=== PATIENT | female | born 1945 | race Caucasian/White ===

== ENCOUNTER → 2017-12-16 | Outpatient (CLI) | payer MEDICARE, OTHER ==
[~2017-12-16] MED LIST: ALBU90OI INH; ASPI81EC; ASPI81EC PO; ATEN25; ATEN25 PO; CEPH500 PO; CIPR500 PO; Cipro500 MG PO; FENO67 PO; FENOFIBRATE; FISH OIL; FISH OIL 1,0001 EAC1 PO; FLUSAL1005; FLUSAL2505 IH; HYDACE5 PO; IPRATROPIUM-ALBUTERO; LEVO750 PO; LEVOTHYROXINE; LEVSOD50 PO; LEVSOD75 PO; LISI20; LISI20 PO; LISINOPRIL; LOVA20; MELO7.5 PO; METO50ER PO; METOPROLOL; PRAV20 PO; PRED10 PO; PRED20 PO; PROCODE120 PO; Percocet 5-3251 EACH PO; Pyridium200 MG PO; TRIAMCINOLONE; Tessalon200 MG PO
== END ==
LOC: LAB 12:11 → LAB SHORT 12:11
DX: J34.89 Other specified disorders of nose and nasal sinuses (principal)
CPT/HCPCS: 87070; 87077; 87147; 87186; 87205

== ENCOUNTER → 2019-03-19 | Outpatient (CLI) | payer MEDICARE | END | disposition home or self-care (01) | LOC: LAB 17:27 → LAB SHORT 17:27 | DX: R30.9 Painful micturition, unspecified (principal) | CPT/HCPCS: 87086 ==

== ENCOUNTER → 2019-04-28 | Outpatient (CLI) | payer MEDICARE, OTHER | END | disposition home or self-care (01) | LOC: LAB SHORT 17:24 → LAB EV 17:24 | DX: N39.0 Urinary tract infection, site not specified (principal) | CPT/HCPCS: 87077; 87086; 87186 ==

== ENCOUNTER → 2019-05-13 | Outpatient (CLI) | payer MEDICARE, OTHER ==
[2019-05-13 18:19] LABS: Bun/Creatinine Ratio 16.9 (12.0-20.0); Calcium, Blood 9.2 mg/dL (8.5-10.1); Creatinine, Blood 1.3 mg/dL (0.40-1.00); Potassium, Blood 4.6 mmol/L (3.5-5.5); Thyroid Stimulating Hormone 0.17 uIU/mL (0.360-4.800)
== END | disposition home or self-care (01) ==
LOC: LAB SHORT 11:42 → LAB EV 11:42
PROVIDERS: Physician Assistant
DX: N39.3 Stress incontinence (female) (male) (principal); I10 Essential (primary) hypertension; E03.8 Other specified hypothyroidism
CPT/HCPCS: 36415; 80048; 84443; 87077; 87086; 87186

== ENCOUNTER → 2019-06-17 | Outpatient (CLI) | payer MEDICARE, OTHER ==
[2019-06-17 13:44] LABS: Creatinine Urine 66.9 mg/dL (27.00-270.00); Protein, Urine Quantitative 8.5 mg/dL (0.0-11.9)
== END | disposition home or self-care (01) ==
LOC: LAB 04:00 → LAB SHORT 04:00 → LAB FUT 06-14 12:35
PROVIDERS: Internal Medicine Nephrology
DX: N18.3 Chronic kidney disease, stage 3 (moderate) (principal); D63.1 Anemia in chronic kidney disease
CPT/HCPCS: 81050; 82043; 82570; 84156

== ENCOUNTER → 2019-11-03 | Outpatient (CLI) | payer MEDICARE, OTHER ==
[2019-11-03 15:20] LABS: BASOPHILS ABSOLUTE AUTO 0.05 K/mm3 (0.00-0.23); BASOPHILS PERCENT AUTO 0 % (0-2); EOSINOPHILS ABSOLUTE AUTO 0.21 K/mm3 (0.00-0.68); EOSINOPHILS PERCENT AUTO 2 % (0-6); Hematocrit 33.7 % (33.0-51.0); Hemoglobin 10.9 g/dL (11.5-16.0); IMMATURE GRAN ABSOLUTE AUTO 0.05 K/mm3 (0.00-0.10); IMMATURE GRAN PERCENT AUTO 0 % (0-1); LYMPHOCYTES ABSOLUTE AUTO 1.87 K/mm3 (0.84-5.20); LYMPHOCYTES PERCENT AUTO 15 % (21-46); MONOCYTES ABSOLUTE AUTO 1.37 K/mm3 (0.16-1.47); MONOCYTES PERCENT AUTO 11 % (4-13); Mean Corpuscular HGB 29.8 pg (26.0-34.0); Mean Corpuscular HGB Conc 32.3 g/dL (31.5-36.5); Mean Corpuscular Volume 92 fL (80-100); Mean Platelet Volume 11.7 fL (9.1-12.4); NEUTROPHILS ABSOLUTE AUTO 8.78 K/mm3 (1.96-9.15); NEUTROPHILS PERCENT AUTO 71 % (41-73); Platelet Count 231 K/mm3 (150-400); RDW Coefficient Variation 12.3 % (11.7-14.2); RDW Standard Deviation 41.2 fL (35.1-46.3); Red Blood Cell Count 3.66 M/mm3 (3.80-5.20); White Blood Cell Count 12.33 K/mm3 (4.00-11.30)
[2019-11-03 15:37] LABS: Albumin, Blood 2.9 g/dL (3.4-5.0); Albumin/Globulin Ratio 0.6 (0.8-1.8); Bilirubin, Total 0.5 mg/dL (0.1-1.0); Bun/Creatinine Ratio 21.5 (12.0-20.0); Creatinine, Blood 1.21 mg/dL (0.40-1.00); Globulin, Blood 4.9 g/dL (2.2-4.0); Potassium, Blood 4.3 mmol/L (3.5-5.5); Total Protein, Blood 7.8 g/dL (6.4-8.2)
== END | disposition home or self-care (01) ==
LOC: LAB EV 14:21 → LAB SHORT 14:21
PROVIDERS: Physician Assistant
DX: R50.9 Fever, unspecified (principal); R05 Cough; N39.0 Urinary tract infection, site not specified
CPT/HCPCS: 80053; 85025; 87077; 87081; 87086; 87186

== ENCOUNTER → 2019-11-14 | Outpatient (CLI) | payer MEDICARE, OTHER ==
[2019-11-14 13:05] LABS: BASOPHILS ABSOLUTE AUTO 0.04 K/mm3 (0.00-0.23); BASOPHILS PERCENT AUTO 0 % (0-2); EOSINOPHILS PERCENT AUTO 6 % (0-6); Hematocrit 34.9 % (33.0-51.0); Hemoglobin 11.3 g/dL (11.5-16.0); IMMATURE GRAN ABSOLUTE AUTO 0.13 K/mm3 (0.00-0.10); IMMATURE GRAN PERCENT AUTO 1 % (0-1); LYMPHOCYTES ABSOLUTE AUTO 1.71 K/mm3 (0.84-5.20); LYMPHOCYTES PERCENT AUTO 8 % (21-46); MONOCYTES ABSOLUTE AUTO 1.49 K/mm3 (0.16-1.47); MONOCYTES PERCENT AUTO 7 % (4-13); Mean Corpuscular HGB 29.7 pg (26.0-34.0); Mean Corpuscular HGB Conc 32.4 g/dL (31.5-36.5); Mean Corpuscular Volume 92 fL (80-100); Mean Platelet Volume 11.1 fL (9.1-12.4); NEUTROPHILS ABSOLUTE AUTO 16.53 K/mm3 (1.96-9.15); NEUTROPHILS PERCENT AUTO 78 % (41-73); Platelet Count 238 K/mm3 (150-400); RDW Coefficient Variation 12.6 % (11.7-14.2); RDW Standard Deviation 41.8 fL (35.1-46.3); Red Blood Cell Count 3.81 M/mm3 (3.80-5.20)
[2019-11-14 13:24] LABS: Source, Urine Clean Catch
[2019-11-14 13:32] LABS: Albumin, Blood 3.1 g/dL (3.4-5.0); Albumin/Globulin Ratio 0.7 (0.8-1.8); Bilirubin, Total 0.4 mg/dL (0.1-1.0); Bun/Creatinine Ratio 19.2 (12.0-20.0); Calcium, Blood 9.4 mg/dL (8.5-10.1); Creatinine, Blood 1.3 mg/dL (0.40-1.00); Globulin, Blood 4.3 g/dL (2.2-4.0); Potassium, Blood 4.4 mmol/L (3.5-5.5); Total Protein, Blood 7.4 g/dL (6.4-8.2)
[2019-11-14 13:49] LABS: Amorphous Light (0-Heavy); Bacteria Few /hpf; Mucus Light (0-Heavy); Red Blood Cells, Urine 0-2 /hpf (0-2); Squamous Epithelial Cells Many /hpf (Few)
[2019-11-14 13:50] LABS: Hyaline Casts TNTC /lpf (0-2)
== END | disposition home or self-care (01) ==
LOC: LAB SHORT 12:55 → LAB EV 12:55
PROVIDERS: General Practice
DX: R10.9 Unspecified abdominal pain (principal)
CPT/HCPCS: 80053; 81015; 85025

== ENCOUNTER 2019-11-16 15:57 | Inpatient (IN) | payer MEDICARE, OTHER ==
[~2019-11-16] VITALS: Ht 152.4 cm; Wt 63.0 kg
[~2019-11-16 15:57] MED LIST changes: -FLUSAL2505 IH; -LEVSOD75 PO; +LOVA40 PO; -PRAV20 PO
[2019-11-16] MEDS ORDERED: AMLODIPINE BESYL5 MG PO (16:45)
[2019-11-16 17:18] LABS: BASOPHILS ABSOLUTE AUTO 0.04 K/mm3 (0.00-0.23); BASOPHILS PERCENT AUTO 0 % (0-2); EOSINOPHILS ABSOLUTE AUTO 0.53 K/mm3 (0.00-0.68); EOSINOPHILS PERCENT AUTO 3 % (0-6); Hematocrit 39.2 % (33.0-51.0); Hemoglobin 12.6 g/dL (11.5-16.0); IMMATURE GRAN ABSOLUTE AUTO 0.09 K/mm3 (0.00-0.10); IMMATURE GRAN PERCENT AUTO 1 % (0-1); LYMPHOCYTES PERCENT AUTO 13 % (21-46); MONOCYTES ABSOLUTE AUTO 1.57 K/mm3 (0.16-1.47); MONOCYTES PERCENT AUTO 9 % (4-13); Mean Corpuscular HGB Conc 32.1 g/dL (31.5-36.5); Mean Corpuscular Volume 93 fL (80-100); NEUTROPHILS ABSOLUTE AUTO 12.67 K/mm3 (1.96-9.15); NEUTROPHILS PERCENT AUTO 74 % (41-73); Platelet Count 292 K/mm3 (150-400); RDW Coefficient Variation 12.5 % (11.7-14.2); RDW Standard Deviation 42.8 fL (35.1-46.3)
[2019-11-16 17:41] LABS: Albumin, Blood 3.3 g/dL (3.4-5.0); Albumin/Globulin Ratio 0.7 (0.8-1.8); Bilirubin, Total 0.3 mg/dL (0.1-1.0); Bun/Creatinine Ratio 15.2 (12.0-20.0); Calcium, Blood 9.7 mg/dL (8.5-10.1); Creatinine, Blood 2.7 mg/dL (0.40-1.00); Globulin, Blood 4.9 g/dL (2.2-4.0); Potassium, Blood 3.5 mmol/L (3.5-5.5); Total Protein, Blood 8.2 g/dL (6.4-8.2)
[2019-11-16] MEDS ORDERED: LOSA50 PO (19:41)
[2019-11-16] MEDS ORDERED: TRAM50 PO (19:42)
[2019-11-16] MEDS ORDERED: BREO ELLIPTA 11 EACH INH (19:43)
[2019-11-16] MEDS ORDERED: OMEP20ER PO (19:51)
[2019-11-16] MEDS ORDERED: MOTION RELIEF25 MG PO (19:52)
[2019-11-16 20:36] LABS: Bilirubin, Urine Neg (Neg); Blood, Urine 2+ (Neg); Glucose Qualitative, Urine Neg (Neg); Ketones, Urine 1+ (Neg); Leukocyte Esterase, Urine 1+ (Neg); Nitrite, Urine Neg (Neg); Protein, Urine 2+ (Neg); Urobilinogen, Urine NORM (Normal)
[2019-11-16 20:57] LABS: Appearance, Urine Hazy (Clear); Color, Urine Yellow (P-Yellow)
[2019-11-16 21:01] LABS: Bacteria Mod /hpf; Mucus Light (0-Heavy); Squamous Epithelial Cells Many /hpf (Few)
--- NOTE | 2019-11-16 22:56 | NUR ---
74 YR OLD FEMALE ADMITTED TO THE FLOOR FROM THE ED WITH DX OF DIVERTICULITIS. ALERT AND ORIENTED X 4. UP AD YOJANA. ED NURSE VOICED PT HAVING HAD N/V/D X 3 DAYS PRIOR TO COMING IN TO THE ED. WHEN PT ARRIVED SHE SAID SHE COULDNT KEEP ANYTHING DOWN. BECAME NAUSEATED, RECEIVED ZOFRAN IV - SEE MAR FOR DETAILS. IVF OF NS AT 100 ML/HR. NPO. ORIENTED TO USE OF CALL LIGHT. CALL LIGHT IN REACH. WILL MONITOR
--- NOTE | 2019-11-17 04:03 | NUR ---
ADMITTED LAST EVENING WITH DIVERTICULITIS. IVF INFUSING PER MD ORDERS - SEE MAR FOR DETAILS. UP TO RESTROOM A FEW TIMES BUT NO BM OF THIS WRITING. HAS VOIDED A FEW TIMES. VOICED WAS SCARED OF ALL THE THINGS HER SYMPTOMS COULD BE AND EVEN MENTIONED "CANCER", WAS TEARY EYED. PT FEARS ACKNOWLEDGED, REASSURANCE GIVEN, TO FOCUS ON WHAT WE COULD DEDUCE WITH TESTS. PT AGREED TO DISCUSS HER CONCERNS WITH THE MD LATER TODAY. WHEN NURSE RECHECKED ON HER LATER, ALTHOUGH AWAKE, APPEARED LESS TEARY EYED. STATED SHE WAS LISTENING TO "[employer]" AND FELT IT WAS CALMING HER. CALL LIGHT IN REACH.
[2019-11-17 05:08] LABS: Hematocrit 32.9 % (33.0-51.0); Hemoglobin 10.4 g/dL (11.5-16.0); Mean Corpuscular HGB 29.6 pg (26.0-34.0); Mean Corpuscular HGB Conc 31.6 g/dL (31.5-36.5); Mean Corpuscular Volume 94 fL (80-100); Mean Platelet Volume 12.3 fL (9.1-12.4); Platelet Count 235 K/mm3 (150-400); RDW Coefficient Variation 12.5 % (11.7-14.2); RDW Standard Deviation 42.9 fL (35.1-46.3); Red Blood Cell Count 3.51 M/mm3 (3.80-5.20); White Blood Cell Count 10.41 K/mm3 (4.00-11.30)
[2019-11-17 05:39] LABS: Albumin, Blood 2.5 g/dL (3.4-5.0); Albumin/Globulin Ratio 0.7 (0.8-1.8); Bilirubin, Total 0.2 mg/dL (0.1-1.0); Bun/Creatinine Ratio 12.9 (12.0-20.0); Calcium, Blood 8.5 mg/dL (8.5-10.1); Creatinine, Blood 3.09 mg/dL (0.40-1.00); Globulin, Blood 3.7 g/dL (2.2-4.0); Potassium, Blood 3.8 mmol/L (3.5-5.5)
[2019-11-17 05:43] LABS: Total Protein, Blood 6.2 g/dL (6.4-8.2)
[2019-11-17 10:40] LABS: Adenovirus F 40/41 Not Detected (NOT DETECT); Astrovirus Not Detected (NOT DETECT); Campylobacter Sp Not Detected (NOT DETECT); Cryptosporidium Not Detected (NOT DETECT); Cyclospora Cayetanensis Not Detected (NOT DETECT); E. Coli O157 Not Detected (NOT DETECT); Entamoeba Histolytica Not Detected (NOT DETECT); Enteroaggregative E. coli-EAEC Not Detected (NOT DETECT); Enteropathogenic E. coli-EPEC Not Detected (NOT DETECT); Enterotoxigenic E. coli-ETEC Not Detected (NOT DETECT); Giardia Lamblia Not Detected (NOT DETECT); Norovirus GI/GII Not Detected (NOT DETECT); Plesiomonas Shigelloides Not Detected (NOT DETECT); Rotavirus A Not Detected (NOT DETECT); Salmonella Sp Not Detected (NOT DETECT); Sapovirus Not Detected (NOT DETECT); Shiga Toxin-prod E. coli-STEC Not Detected (NOT DETECT); Shigella/Enteroin E. coli-EIEC Not Detected (NOT DETECT); Vibrio Cholerae Not Detected (NOT DETECT); Vibrio Sp Not Detected (NOT DETECT); Yersinia Enterocolitica Not Detected (NOT DETECT)
--- NOTE | 2019-11-17 15:52 | NUR ---
PATIENT SEEMS TO BE DOING WELL THIS SHIFT. SHE CONTINUES ON IV ABX WITHOUT S/SX OF ADVERSE REACTIONS NOTED OR REPORTED. VITALS HAVE BEEN STABLE. PATIENT DENIES PAIN AND DISCOMFORT. SHE IS PLEASANT AND COOPERATIVE WITH STAFF AND CALLS FOR STAFF ASSIST APPROPRIATELY.
--- NOTE | 2019-11-17 19:05 | NUR ---
ASSUMED CARE RECEIVED REPORT FROM DAY RN. ASSUMED CARE OF PT. RESTING COMFORTABLY AT THIS TIME, NO S/S ACUTE DISTRESS NOTED. DENIES ANY NEEDS AT THIS TIME. CALL LIGHT AND POSSESSIONS IN REACH, BED IN LOWEST POSITION. DIMITRIOS.
--- NOTE | 2019-11-17 22:12 | NUR ---
2211 TELEMETRY CALLED TO ALERT THAT PATIENT HAD AN 8 BEAT RUN OF VTACH. PATIENT ASYMPTOMATIC. WCTM. CALL LIGHT AND BELONGINGS WITHIN REACH. BED IN LOWEST POSITION.
[2019-11-18 04:43] LABS: BASOPHILS ABSOLUTE AUTO 0.05 K/mm3 (0.00-0.23); BASOPHILS PERCENT AUTO 1 % (0-2); EOSINOPHILS ABSOLUTE AUTO 0.32 K/mm3 (0.00-0.68); EOSINOPHILS PERCENT AUTO 5 % (0-6); Hematocrit 31.3 % (33.0-51.0); Hemoglobin 10.1 g/dL (11.5-16.0); IMMATURE GRAN ABSOLUTE AUTO 0.02 K/mm3 (0.00-0.10); IMMATURE GRAN PERCENT AUTO 0 % (0-1); LYMPHOCYTES ABSOLUTE AUTO 2.06 K/mm3 (0.84-5.20); LYMPHOCYTES PERCENT AUTO 30 % (21-46); MONOCYTES ABSOLUTE AUTO 0.72 K/mm3 (0.16-1.47); MONOCYTES PERCENT AUTO 10 % (4-13); Mean Corpuscular HGB 30.1 pg (26.0-34.0); Mean Corpuscular HGB Conc 32.3 g/dL (31.5-36.5); Mean Corpuscular Volume 93 fL (80-100); Mean Platelet Volume 11.7 fL (9.1-12.4); NEUTROPHILS ABSOLUTE AUTO 3.81 K/mm3 (1.96-9.15); NEUTROPHILS PERCENT AUTO 55 % (41-73); Platelet Count 232 K/mm3 (150-400); RDW Coefficient Variation 12.7 % (11.7-14.2); RDW Standard Deviation 43.5 fL (35.1-46.3); Red Blood Cell Count 3.36 M/mm3 (3.80-5.20); White Blood Cell Count 6.98 K/mm3 (4.00-11.30)
[2019-11-18 05:02] LABS: Albumin, Blood 2.4 g/dL (3.4-5.0); Albumin/Globulin Ratio 0.7 (0.8-1.8); Bilirubin, Total 0.2 mg/dL (0.1-1.0); Bun/Creatinine Ratio 12.2 (12.0-20.0); Calcium, Blood 8.8 mg/dL (8.5-10.1); Creatinine, Blood 3.28 mg/dL (0.40-1.00); Globulin, Blood 3.5 g/dL (2.2-4.0); Magnesium, Blood 1.9 mg/dL (1.6-2.4); Phosphorus, Blood 4.3 mg/dL (2.5-4.9); Potassium, Blood 3.8 mmol/L (3.5-5.5); Total Protein, Blood 5.9 g/dL (6.4-8.2)
--- NOTE | 2019-11-18 05:44 | NUR ---
SHIFT SUMMARY PT REMAINS ASLEEP AT THIS TIME, NO OTHER TELEMETRY EVENTS NOTED THIS SHIFT. MEDICATED FOR NAUSEA X1, EFFECTIVE. PT ASLEEP T/O MUCH OF NIGHT. NO OTHER ACUTE EVENTS NOTED. CALL LIGHT, POSSESSIONS IN REACH, BED IN LOWEST POSITION. WCTM UNTIL DAY RN ASSUMES CARE.
--- NOTE | 2019-11-18 15:18 | NUR ---
THE PATIENT HAS HAD A GOOD SHIFT; NOT MUCH STOMACH DISCOMFORT. SHE REMAINS ON CONTACT ISOLATION D/T C-DIFF. VITALS ARE STABLE AND WNL. IVF CONTINUE TO RUN, HOWEVER DR FORBES JUST DISCONTINUED THE 5%DEXTROSE IN 08/12 NS AND CHANGED IT TO SODIUM BICARBONATE. WILL SWITCH THE FLUIDS OVER WHEN IT ARRIVES FROM PHARMACY. PATIENT IS PLEASANT AND COOPERATIVE WITH STAFF AND CALLS FOR STAFF ASSIST NEEDED. CONTINUES ON IV ABX WITHOUT S/SX OF ADVERSE REATIONS NOTED OR REPORTED. WILL CONTINUE TO MONITOR AND PROVIDE CARE NEEDED.
--- NOTE | 2019-11-18 19:10 | NUR ---
ASSUMED CARE RECEIVED REPORT FROM COLEEN ZHU. ASSUMED CARE OF PT. RESTING COMFORTABLY AT THIS TIME, NO S/S ACUTE DISTRESS NOTED. DENIES PAIN OR NAUSEA AT THIS TIME. CALL LIGHT AND POSSESSIONS IN REACH, WILL CONTINUE TO MONITOR.
--- NOTE | 2019-11-19 04:33 | NUR ---
SHIFT SUMMARY PT HAS HAD AN UNEVENTFUL SHIFT, NO C/O NAUSEA OR PAIN AT THIS TIME, SLEEPING ON AND OFF. VS STABLE. DENIES ANY NEEDS AT THIS TIME, CALL LIGHT AND POSSESSIONS IN REACH, WILL CONTINUE TO MONITOR UNTIL DAY RN ASSUMES CARE.
[2019-11-19 05:02] LABS: BASOPHILS ABSOLUTE AUTO 0.06 K/mm3 (0.00-0.23); BASOPHILS PERCENT AUTO 1 % (0-2); EOSINOPHILS PERCENT AUTO 7 % (0-6); Hematocrit 30.2 % (33.0-51.0); Hemoglobin 9.8 g/dL (11.5-16.0); IMMATURE GRAN ABSOLUTE AUTO 0.02 K/mm3 (0.00-0.10); IMMATURE GRAN PERCENT AUTO 0 % (0-1); LYMPHOCYTES ABSOLUTE AUTO 1.64 K/mm3 (0.84-5.20); LYMPHOCYTES PERCENT AUTO 28 % (21-46); MONOCYTES ABSOLUTE AUTO 0.63 K/mm3 (0.16-1.47); MONOCYTES PERCENT AUTO 11 % (4-13); Mean Corpuscular HGB 29.2 pg (26.0-34.0); Mean Corpuscular HGB Conc 32.5 g/dL (31.5-36.5); Mean Platelet Volume 11.4 fL (9.1-12.4); NEUTROPHILS ABSOLUTE AUTO 3.13 K/mm3 (1.96-9.15); NEUTROPHILS PERCENT AUTO 53 % (41-73); Platelet Count 206 K/mm3 (150-400); RDW Coefficient Variation 12.5 % (11.7-14.2); Red Blood Cell Count 3.36 M/mm3 (3.80-5.20); White Blood Cell Count 5.88 K/mm3 (4.00-11.30)
[2019-11-19 05:08] LABS: Mean Corpuscular Volume 90 fL (80-100)
[2019-11-19 05:33] LABS: Albumin, Blood 2.4 g/dL (3.4-5.0); Albumin/Globulin Ratio 0.8 (0.8-1.8); Bilirubin, Total 0.2 mg/dL (0.1-1.0); Bun/Creatinine Ratio 11.7 (12.0-20.0); Calcium, Blood 8.2 mg/dL (8.5-10.1); Creatinine, Blood 2.73 mg/dL (0.40-1.00); Globulin, Blood 3.2 g/dL (2.2-4.0); Magnesium, Blood 1.7 mg/dL (1.6-2.4); Phosphorus, Blood 2.8 mg/dL (2.5-4.9); Potassium, Blood 3.4 mmol/L (3.5-5.5); Total Protein, Blood 5.6 g/dL (6.4-8.2)
--- NOTE | 2019-11-19 06:25 | NUR ---
DR. FORBES IN TO SEE PT. ORDERS RECEIVED AND ENTERED INTO [facility].
--- NOTE | 2019-11-19 08:30 | NUR ---
PT PLEASANT A/O TALKATIVE. STATES LIGHT BM THIS AM. BARELY FORMED, BUT LOOSE. DENIES PAIN AT THIS TIME. H/R REG, NO MURMER NOTED. PER TELE NS WITH BBB AT 60. LUNGS CLEAR , RESP EASY, UNLABORED. ON R.A. BT XR ALST BM TODAY NOTED. ABD SOFT TENDER, VOIDS BATHROOM. BED IN LOW POSITION, CALL LITE IN REACH, CALLS APPROP
--- NOTE | 2019-11-19 17:44 | NUR ---
Tania was very tearful and expressed concern/fear for her finance. He was admitted to the ED this afternoon with cardiac issues. She was very distraught that she could not be with him. I went to ED and met with Shreyas reddy) and reported back to Tania his love for her. Then, we spke at length about her nelson and life's journey away from the [employer]. She has been carrying a great deal of guilt for decades. Tania responded well to spiritual direction and prayer. She appeared much brighter and spiritually refreshed by conclusion of visit. We had an easy rapport and Tania expressed gratitude and peace with my interventions. Advised that [employer] would remain available.
--- NOTE | 2019-11-19 18:38 | NUR ---
PT BP ELEVATED 173/63. SPOUSE IN ER WITH HEART ATTACK PER PT. SHE WAS QUITE CONCERNED. REEVALUATED LATER, BP. STILL UP AT 163/64. SPOKE TO DR LAWLER. OKAY RESTART AMLODIPINE AND COZAAR HOME DOSES. START NOW.
--- NOTE | 2019-11-19 19:33 | NUR ---
PT PLEASANT TODAY. SPOUSE IN ER THIS AFT FOR HEART ATTACK. SHE GREATLY CONCERNED. DID CALL FOR SPIRITUAL CARE TO COME SEE HER. SHE GREATLY APPRECIATED. HUSB STABLE NOW PER PT. PT STILL PASSING VERY LOOSELY FORMED STOOLS. NO OTHER CONCERNS AT THIS TIME. BED IN LOW POSITOIN, CALL LIET IN REACH, CALLS APPROP
[2019-11-20 04:50] LABS: BASOPHILS ABSOLUTE AUTO 0.06 K/mm3 (0.00-0.23); BASOPHILS PERCENT AUTO 1 % (0-2); EOSINOPHILS ABSOLUTE AUTO 0.34 K/mm3 (0.00-0.68); EOSINOPHILS PERCENT AUTO 6 % (0-6); Hematocrit 32.3 % (33.0-51.0); Hemoglobin 10.3 g/dL (11.5-16.0); IMMATURE GRAN ABSOLUTE AUTO 0.02 K/mm3 (0.00-0.10); IMMATURE GRAN PERCENT AUTO 0 % (0-1); LYMPHOCYTES ABSOLUTE AUTO 1.73 K/mm3 (0.84-5.20); LYMPHOCYTES PERCENT AUTO 30 % (21-46); MONOCYTES ABSOLUTE AUTO 0.55 K/mm3 (0.16-1.47); MONOCYTES PERCENT AUTO 10 % (4-13); Mean Corpuscular HGB 29.4 pg (26.0-34.0); Mean Corpuscular HGB Conc 31.9 g/dL (31.5-36.5); Mean Corpuscular Volume 92 fL (80-100); Mean Platelet Volume 11.5 fL (9.1-12.4); NEUTROPHILS ABSOLUTE AUTO 3.08 K/mm3 (1.96-9.15); NEUTROPHILS PERCENT AUTO 53 % (41-73); Platelet Count 216 K/mm3 (150-400); RDW Coefficient Variation 12.8 % (11.7-14.2); RDW Standard Deviation 43.3 fL (35.1-46.3); White Blood Cell Count 5.78 K/mm3 (4.00-11.30)
[2019-11-20 05:18] LABS: Magnesium, Blood 1.6 mg/dL (1.6-2.4)
[2019-11-20 05:21] LABS: Albumin, Blood 2.5 g/dL (3.4-5.0); Albumin/Globulin Ratio 0.8 (0.8-1.8); Bilirubin, Total 0.3 mg/dL (0.1-1.0); Bun/Creatinine Ratio 9.8 (12.0-20.0); Calcium, Blood 8.3 mg/dL (8.5-10.1); Creatinine, Blood 2.25 mg/dL (0.40-1.00); Globulin, Blood 3.3 g/dL (2.2-4.0); Potassium, Blood 3.9 mmol/L (3.5-5.5); Total Protein, Blood 5.8 g/dL (6.4-8.2)
--- NOTE | 2019-11-20 06:15 | NUR ---
SHIFT SUMMARY PT IS A 74 Y/O FEMALE, ADMITTED FOR DIVERTICULITIS. SHE IS A&O X 4, AND INDEPENDENT IN THE ROOM. PT DENIED ANY COMPLAINTS OF PAIN, NAUSEA OR SOB, AND SLEPT WELL THROUGH THE NIGHT AFTER RECEIVING A SLEEPING AID AT HS. VITAL SIGNS STABLE. PT RECEIVED CONTINUOUS NS @ 75 ML/HR. NO ACUTE CHANGES IN PT CONDITION NOTED. WILL CONTINUE TO MONITOR AND TREAT PER EMAR UNTIL HAND OFF TO DAY SHIFT RN.
--- NOTE | 2019-11-20 17:47 | NUR ---
PT IS A/OX3, PLEASANT AND [id number], THE PT IS UP IND IN HER ROOM, THE PT TODAY WAS ABLE TO TOLERATE HER FULL LIQUID DIET, PT DENIED ABD PAIN, N/V, PT APPEARS TO BE BREATHING EASILY ON RA AT THIS TIME, PTS NANCY CAME UP FROM PCU AND VISITED WITH THE PT FOR AWHILE, CALL LIGHT IN REACH, NO OTHER CHANGES NOTICED THIS SHIFT
--- NOTE | 2019-11-21 04:32 | NUR ---
SHIFT SUMMARY PT HAS HAD NO ACUTE CHANGES THIS SHIFT, HAS TOLERATED FULL LIQUID DIET, REPORTS ONLY 2 SMALL PARTIALLY FORMED STOOLS SINCE DINNER, PT REQ RESTORIL @ BEDTIME & SLEPT T/O NIGHT, SLEEPING AT THIS TIME, CALL LIGHT IN REACH, WILL CONT TO MONITOR UNTIL REPORT GIVEN TO DAY RN.
[2019-11-21 08:36] LABS: Hematocrit 32.2 % (33.0-51.0); Hemoglobin 10.5 g/dL (11.5-16.0)
[2019-11-21 08:47] LABS: Albumin, Blood 2.6 g/dL (3.4-5.0); Anion Gap 6 mmol/L (6-16); Blood Urea Nitrogen 19 mg/dL (8-24); Bun/Creatinine Ratio 10.3 (12.0-20.0); CO2, Blood 25 mmol/L (21-32); Calcium, Blood 8.8 mg/dL (8.5-10.1); Chloride, Blood 111 mmol/L (98-108); Creatinine, Blood 1.84 mg/dL (0.40-1.00); Glomerular Filtration Rate 28 (60-); Glucose, Blood 116 mg/dL (70-99); Potassium, Blood 4.1 mmol/L (3.5-5.5); Sodium, Blood 142 mmol/L (136-145)
--- NOTE | 2019-11-21 13:31 | NUR ---
PT STATE NO ABD PAIN THIS MORNING, STATE CONTINUING DIARRHEA DURING THE NIGHT. STATE WOULD LIKE TO TRY SOLID FOOD. DIET ADV FROM FL TO SOFT. SHE HAS TOLERATED WELL W/O ABDOMINAL PAIN OR NAUSEA. DR GALO IN TO SEE HER AFTER NOON. EXPLAIN DX DIVERTICULITIS & C-DIFF. STATE OK FOR D/C HOME, PLACE ORDERS. PT STATE FEELS READY TO GO HOME, PLEASANT/APPRECIATIVE AFFECT. VSS.
[2019-11-21] MEDS ORDERED: TEMA7.5 PO (14:02)
[2019-11-21] MEDS ORDERED: LEVFLO500 PO (14:02)
[2019-11-21] MEDS ORDERED: LACT PO (14:02)
[2019-11-21] MEDS ORDERED: METR500 PO (14:03)
--- NOTE | 2019-11-21 14:42 | NUR ---
REVIEWED DC INSTRUCTIONS WITH PATIENT INCLUDING EDUCATION ON NEW MEDICATIONS AND CDIFF PRECAUTIONS. PATIENT DENIES QUESTIONS OR CONCERNED. REVIEWED FOLLOW UP APPTS WITH PT WELL. PT IS CALLING DR CHILDRESS OFFICE IN THE AM. AWAITING SON TO ARRIVE TO VP STRATEGIC PLANNING PATIENT.
== END 2019-11-21 14:49 | disposition home or self-care (01) | DRG 391 ==
LOC: ER 15:57 → MEDS 15:58
PROVIDERS: Emergency Medicine; Family Medicine; Internal Medicine Nephrology; ADMIT Internal Medicine
DX: K57.92 Diverticulitis of intestine, part unspecified, without perforation or abscess without bleeding (principal); N17.0 Acute kidney failure with tubular necrosis; N25.81 Secondary hyperparathyroidism of renal origin; E87.2 Acidosis; E87.0 Hyperosmolality and hypernatremia; I12.9 Hypertensive chronic kidney disease with stage 1 through stage 4 chronic kidney disease, or unspecified chronic kidney disease; N18.2 Chronic kidney disease, stage 2 (mild); E86.1 Hypovolemia; G47.00 Insomnia, unspecified; Z87.440 Personal history of urinary (tract) infections; K21.9 Gastro-esophageal reflux disease without esophagitis; E03.9 Hypothyroidism, unspecified; I48.91 Unspecified atrial fibrillation; E86.9 Volume depletion, unspecified; D64.9 Anemia, unspecified; J44.9 Chronic obstructive pulmonary disease, unspecified; E78.5 Hyperlipidemia, unspecified; R09.02 Hypoxemia
CPT/HCPCS: 0097U; 36415; 74177; 76770; 80053; 80069; 81001; 83690; 83735; 84100; 85014; 85018; 85025; 85027; 87086; 87324; 94640; 94760; 96365; 96366; 96367; 96375; 99285-25; A9270-GY; J0881; J1644; J1956; J2270; J2405; J7030; J7042; J7070; Q9967

== ENCOUNTER → 2019-11-25 | Outpatient (CLI) | payer MEDICARE, OTHER ==
[~2019-11-25] MED LIST changes: +AMLODIPINE BESYL5 MG PO; +BREO ELLIPTA 11 EACH INH; +LACT PO; +LEVFLO500 PO; +LOSA50 PO; +METR500 PO; +MOTION RELIEF25 MG PO; +OMEP20ER PO; +TEMA7.5 PO; +TRAM50 PO
[2019-11-26 13:53] LABS: Stool Occult Bld Immuno 1 Negative (NEGATIVE)
== END | disposition home or self-care (01) ==
LOC: LAB EV 08:15
PROVIDERS: Nurse Practitioner Family
DX: K92.1 Melena (principal)
CPT/HCPCS: 82274

== ENCOUNTER → 2020-04-05 | Outpatient (CLI) | payer MEDICARE, OTHER | END | disposition home or self-care (01) | LOC: LAB 11:30 → LAB SHORT 11:30 → LAB FUT 04-03 12:45 | PROVIDERS: Nurse Practitioner Family | DX: K57.92 Diverticulitis of intestine, part unspecified, without perforation or abscess without bleeding (principal); R19.4 Change in bowel habit; R19.7 Diarrhea, unspecified; Z87.19 Personal history of other diseases of the digestive system | CPT/HCPCS: 87324; 87493 ==

== ENCOUNTER 2021-01-05 22:55 | Emergency (ER) | payer MEDICARE, OTHER ==
[~2021-01-05] VITALS: Ht 162.6 cm; Wt 68.0 kg
[2021-01-06 01:18] LABS: BASOPHILS ABSOLUTE AUTO 0.07 K/mm3 (0.00-0.23); BASOPHILS PERCENT AUTO 1 % (0-2); EOSINOPHILS PERCENT AUTO 1 % (0-6); Hematocrit 35.3 % (33.0-51.0); Hemoglobin 11.4 g/dL (11.5-16.0); IMMATURE GRAN ABSOLUTE AUTO 0.03 K/mm3 (0.00-0.10); IMMATURE GRAN PERCENT AUTO 0 % (0-1); LYMPHOCYTES PERCENT AUTO 17 % (21-46); MONOCYTES ABSOLUTE AUTO 0.66 K/mm3 (0.16-1.47); MONOCYTES PERCENT AUTO 6 % (4-13); Mean Corpuscular HGB 30.4 pg (26.0-34.0); Mean Corpuscular HGB Conc 32.3 g/dL (31.5-36.5); Mean Corpuscular Volume 94 fL (80-100); NEUTROPHILS ABSOLUTE AUTO 7.81 K/mm3 (1.96-9.15); NEUTROPHILS PERCENT AUTO 75 % (41-73); Platelet Count 179 K/mm3 (150-400); RDW Coefficient Variation 12.7 % (11.7-14.2); RDW Standard Deviation 43.8 fL (35.1-46.3); Red Blood Cell Count 3.75 M/mm3 (3.80-5.20); White Blood Cell Count 10.47 K/mm3 (4.00-11.30)
[2021-01-06 01:37] LABS: Troponin I <0.015 ng/mL (0.000-0.040)
[2021-01-06 01:38] LABS: Alanine Aminotransfer (ALT/SGP 23 U/L (12-78); Albumin, Blood 3.5 g/dL (3.4-5.0); Alk Phos 55 U/L (50-136); Anion Gap 9 mmol/L (6-16); Aspartate Aminotrans (AST/SGOT 25 U/L (12-37); Bilirubin, Total 0.2 mg/dL (0.1-1.0); Blood Urea Nitrogen 38 mg/dL (8-24); Bun/Creatinine Ratio 30.6 (12.0-20.0); CO2, Blood 19 mmol/L (21-32); Calcium, Blood 8.7 mg/dL (8.5-10.1); Chloride, Blood 107 mmol/L (98-108); Creatinine, Blood 1.24 mg/dL (0.40-1.00); Globulin, Blood 3.5 g/dL (2.2-4.0); Glomerular Filtration Rate 45 (60-); Glucose, Blood 96 mg/dL (70-99); Sodium, Blood 135 mmol/L (136-145)
== END 2021-01-06 02:33 | disposition home or self-care (01) ==
LOC: ER 22:55
PROVIDERS: Physician Assistant
DX: K85.90 Acute pancreatitis without necrosis or infection, unspecified (principal); I10 Essential (primary) hypertension; I48.91 Unspecified atrial fibrillation; Z88.6 Allergy status to analgesic agent; Z88.8 Allergy status to other drugs, medicaments and biological substances; Z79.899 Other long term (current) drug therapy
CPT/HCPCS: 36415; 76705; 80053; 83690; 84484; 85025; 96374; 99284-25; A9270; J2405

== ENCOUNTER → 2021-12-26 | Outpatient (CLI) | payer MEDICARE ==
[2021-12-27 14:39] LABS: Creatinine Urine 95.2 mg/dL (27.00-270.00); Protein, Urine Quantitative 30.7 mg/dL (0.0-11.9)
== END | disposition home or self-care (01) ==
LOC: LAB SHORT 05:00 → EDSTATUS 12-10 10:25 → LAB FUT 12-10 10:25
PROVIDERS: Internal Medicine Nephrology
DX: N18.30 Chronic kidney disease, stage 3 unspecified (principal); D63.1 Anemia in chronic kidney disease; N25.81 Secondary hyperparathyroidism of renal origin; E55.9 Vitamin D deficiency, unspecified; E78.00 Pure hypercholesterolemia, unspecified; D51.8 Other vitamin B12 deficiency anemias; D52.8 Other folate deficiency anemias; R76.9 Abnormal immunological finding in serum, unspecified; R94.5 Abnormal results of liver function studies; R94.6 Abnormal results of thyroid function studies
CPT/HCPCS: 81050; 82043; 82570; 84156

== ENCOUNTER → 2022-01-31 | Outpatient (CLI) | payer MEDICARE | END | disposition home or self-care (01) | LOC: LAB 10:55 → LAB SHORT 10:55 | DX: R30.0 Dysuria (principal); R35.0 Frequency of micturition | CPT/HCPCS: 87077; 87086; 87186 ==

== ENCOUNTER 2022-05-27 08:45 | Emergency (ER) | payer MEDICARE, OTHER ==
[~2022-05-27] VITALS: Ht 157.5 cm; Wt 65.8 kg
[2022-05-27] MEDS ORDERED: CODEINE-GUAIFE120 M1 PO (10:02)
== END 2022-05-27 10:05 | disposition home or self-care (01) ==
LOC: ER 08:45
DX: U07.1 COVID-19 (principal); I10 Essential (primary) hypertension; Z88.6 Allergy status to analgesic agent; Z88.8 Allergy status to other drugs, medicaments and biological substances; Z79.899 Other long term (current) drug therapy
CPT/HCPCS: 99283

== ENCOUNTER 2022-06-02 03:46 | Emergency (ER) | payer MEDICARE, OTHER ==
[~2022-06-02] VITALS: Ht 160 cm; Wt 65.8 kg
[~2022-06-02 03:46] MED LIST changes: +CODEINE-GUAIFE120 M1 PO
[2022-06-02 08:17] LABS: BASOPHILS ABSOLUTE AUTO 0.04 K/mm3 (0.00-0.23); BASOPHILS PERCENT AUTO 0 % (0-2); EOSINOPHILS ABSOLUTE AUTO 0.27 K/mm3 (0.00-0.68); EOSINOPHILS PERCENT AUTO 2 % (0-6); Hematocrit 35.9 % (33.0-51.0); Hemoglobin 11.6 g/dL (11.5-16.0); IMMATURE GRAN ABSOLUTE AUTO 0.03 K/mm3 (0.00-0.10); IMMATURE GRAN PERCENT AUTO 0 % (0-1); LYMPHOCYTES ABSOLUTE AUTO 4.78 K/mm3 (0.84-5.20); LYMPHOCYTES PERCENT AUTO 41 % (21-46); MONOCYTES ABSOLUTE AUTO 1.11 K/mm3 (0.16-1.47); MONOCYTES PERCENT AUTO 10 % (4-13); Mean Corpuscular HGB 30.2 pg (26.0-34.0); Mean Corpuscular HGB Conc 32.3 g/dL (31.5-36.5); Mean Corpuscular Volume 94 fL (80-100); Mean Platelet Volume 11.8 fL (9.1-12.4); NEUTROPHILS ABSOLUTE AUTO 5.49 K/mm3 (1.96-9.15); NEUTROPHILS PERCENT AUTO 47 % (41-73); Platelet Count 221 K/mm3 (150-400); RDW Coefficient Variation 12.9 % (11.7-14.2); RDW Standard Deviation 44.4 fL (35.1-46.3); Red Blood Cell Count 3.84 M/mm3 (3.80-5.20); White Blood Cell Count 11.72 K/mm3 (4.00-11.30)
[2022-06-02 08:31] LABS: Bun/Creatinine Ratio 22.1 (12.0-20.0); Calcium, Blood 9.5 mg/dL (8.5-10.1); Creatinine, Blood 1.13 mg/dL (0.40-1.00); Potassium, Blood 3.3 mmol/L (3.5-5.5)
[2022-06-02] MEDS ORDERED: AZIT250 PO (11:29)
[2022-06-02] MEDS ORDERED: PRED20 PO (11:29)
== END 2022-06-02 12:46 | disposition home or self-care (01) ==
LOC: ER 03:46
PROVIDERS: Emergency Medicine
DX: J44.1 Chronic obstructive pulmonary disease with (acute) exacerbation (principal); I48.91 Unspecified atrial fibrillation; I10 Essential (primary) hypertension; Z88.6 Allergy status to analgesic agent; Z88.8 Allergy status to other drugs, medicaments and biological substances; Z79.899 Other long term (current) drug therapy; Z87.891 Personal history of nicotine dependence; Z86.16 Personal history of COVID-19
CPT/HCPCS: 36415; 71045; 80048; 85025; 93005; 93010; 94644; 94664; J1100; J7030

== ENCOUNTER 2022-12-09 06:39 | Inpatient (IN) | payer MEDICARE ==
[~2022-12-09] VITALS: Ht 157.5 cm; Wt 64.1 kg
[~2022-12-09 06:39] MED LIST changes: +AZIT250 PO; +BREO ELLIPTA 11 EAC1 INH; -BREO ELLIPTA 11 EACH INH; +LEVSOD25 PO
[2022-12-09] MEDS ORDERED: FOSAMAX70 MG PO (07:03)
[2022-12-09] MEDS ORDERED: ZOLOFT25 MG PO (07:04)
[2022-12-09 07:14] LABS: BASOPHILS ABSOLUTE AUTO 0.03 K/mm3 (0.00-0.23); BASOPHILS PERCENT AUTO 0 % (0-2); EOSINOPHILS PERCENT AUTO 0 % (0-6); Hematocrit 35.7 % (33.0-51.0); Hemoglobin 11.7 g/dL (11.5-16.0); IMMATURE GRAN ABSOLUTE AUTO 0.04 K/mm3 (0.00-0.10); IMMATURE GRAN PERCENT AUTO 0 % (0-1); LYMPHOCYTES ABSOLUTE AUTO 1.66 K/mm3 (0.84-5.20); LYMPHOCYTES PERCENT AUTO 10 % (21-46); MONOCYTES ABSOLUTE AUTO 1.83 K/mm3 (0.16-1.47); MONOCYTES PERCENT AUTO 11 % (4-13); Mean Corpuscular HGB 29.7 pg (26.0-34.0); Mean Corpuscular HGB Conc 32.8 g/dL (31.5-36.5); Mean Corpuscular Volume 91 fL (80-100); Mean Platelet Volume 12.7 fL (9.1-12.4); NEUTROPHILS ABSOLUTE AUTO 12.45 K/mm3 (1.96-9.15); NEUTROPHILS PERCENT AUTO 78 % (41-73); Platelet Count 207 K/mm3 (150-400); RDW Coefficient Variation 12.4 % (11.7-14.2); RDW Standard Deviation 41.6 fL (35.1-46.3); Red Blood Cell Count 3.94 M/mm3 (3.80-5.20); White Blood Cell Count 16.01 K/mm3 (4.00-11.30)
[2022-12-09 07:33] LABS: Albumin, Blood 2.9 g/dL (3.4-5.0); Albumin/Globulin Ratio 0.7 (0.8-1.8); Bilirubin, Total 0.7 mg/dL (0.1-1.0); Bun/Creatinine Ratio 23.1 (12.0-20.0); Creatinine, Blood 1.08 mg/dL (0.40-1.00); Globulin, Blood 4.4 g/dL (2.2-4.0); Magnesium, Blood 1.5 mg/dL (1.6-2.4); Potassium, Blood 3.7 mmol/L (3.5-5.5); Total Protein, Blood 7.3 g/dL (6.4-8.2)
[2022-12-09 11:32] VITALS: BP 125/65
--- NOTE | 2022-12-09 12:01 | NUR ---
ADMIT PT ORIENTED TO ROOM. CALL LIGHT IN REACH. ICE WATER AT BEDSIDE. PT UNDERSTANDS TO CALL BEFORE GETTING OUT OF BED. PT DENIES SOB OR CP AT THIS TIME. VS REVIEWED. HR AT 73. PT DENIES OTHER NEEDS AT THIS TIME.
--- NOTE | 2022-12-09 15:47 | NUR ---
DARK STOOL WHEN GETTING THE PT READY FOR DISCHARGE, PT HAD A BM THAT WAS VERY DARK BROWN/BLACK IN COLOR. DR. JACKSON NOTIFIED. DISCHARGE HELD FOR OCCULT RESULTS. SAMPLE SENT TO THE LAB.
[2022-12-09 16:01] VITALS: BP 148/73
--- NOTE | 2022-12-09 16:10 | NUR ---
SHIFT SUMMARY PT ADMITTED THIS SHIFT. NO ACUTE CHANGES IN ASSESSMENT SINCE ADMISSION. TELE RUNNING NSR WITH A BBB AND PVCS AT 93 BPM PER LILIANA PASTOR. PT COUGHING, WITHOUT ANY PRODUCTION. PT DENIES NEEDS AT THIS TIME. AMBULATING IN ROOM IND. CALL LIGHT IN REACH.
[2022-12-09 19:53] VITALS: BP 137/66
[2022-12-10 03:55] VITALS: BP 147/73
--- NOTE | 2022-12-10 04:10 | NUR ---
CIGAR TOBACCO REHANDLER SUMMARY NO ACUTE EVENTS THIS SHIFT. A&OX4. PATIENT EFFECTIVELY COMMUNICATES NEEDS. VSS. RR EVEN AND UNLABORED ON RA. TELE REVEALS NSR. PATIENT APPEARED TO SLEEP WELL THROUGHOUT THE SHIFT. CALL LIGHT WITHIN REACH. BED LOW AND LOCKED. CALL LIGHT WITHIN REACH. THIS RN WILL CONTINUE TO MONITOR. PATIENT IS SCHEDULED FOR AN ECHO TODAY.
[2022-12-10 05:04] LABS: BASOPHILS ABSOLUTE AUTO 0.01 K/mm3 (0.00-0.23); BASOPHILS PERCENT AUTO 0 % (0-2); EOSINOPHILS PERCENT AUTO 0 % (0-6); Hematocrit 30.1 % (33.0-51.0); Hemoglobin 9.9 g/dL (11.5-16.0); IMMATURE GRAN ABSOLUTE AUTO 0.04 K/mm3 (0.00-0.10); IMMATURE GRAN PERCENT AUTO 0 % (0-1); LYMPHOCYTES ABSOLUTE AUTO 1.03 K/mm3 (0.84-5.20); LYMPHOCYTES PERCENT AUTO 8 % (21-46); MONOCYTES ABSOLUTE AUTO 0.84 K/mm3 (0.16-1.47); MONOCYTES PERCENT AUTO 6 % (4-13); Mean Corpuscular HGB Conc 32.9 g/dL (31.5-36.5); Mean Corpuscular Volume 91 fL (80-100); Mean Platelet Volume 12.6 fL (9.1-12.4); NEUTROPHILS ABSOLUTE AUTO 11.39 K/mm3 (1.96-9.15); NEUTROPHILS PERCENT AUTO 86 % (41-73); Platelet Count 171 K/mm3 (150-400); RDW Coefficient Variation 12.6 % (11.7-14.2); RDW Standard Deviation 42.3 fL (35.1-46.3); White Blood Cell Count 13.31 K/mm3 (4.00-11.30)
[2022-12-10 05:29] LABS: Albumin, Blood 2.6 g/dL (3.4-5.0); Anion Gap 7 mmol/L (6-16); Blood Urea Nitrogen 28 mg/dL (8-24); Bun/Creatinine Ratio 26.7 (12.0-20.0); CO2, Blood 20 mmol/L (21-32); Calcium, Blood 8.6 mg/dL (8.5-10.1); Chloride, Blood 103 mmol/L (98-108); Creatinine, Blood 1.05 mg/dL (0.40-1.00); Glomerular Filtration Rate 54 (60-); Glucose, Blood 143 mg/dL (70-99); Magnesium, Blood 2.1 mg/dL (1.6-2.4); Phosphorus, Blood 2.8 mg/dL (2.5-4.9); Potassium, Blood 4.1 mmol/L (3.5-5.5); Sodium, Blood 130 mmol/L (136-145)
[2022-12-10 07:29] VITALS: BP 131/61
[2022-12-10 15:56] VITALS: BP 151/69
--- NOTE | 2022-12-10 16:43 | NUR ---
SHIFT SUMMARY: PT A&O X4. PT HAS BEEN PLEASANT AND COOPERATIVE WITH ALL CARE. PT INDEPENDENT IN ROOM. PT HAS HAD DRY, HACKING COUGH ALL THROUGHOUT THE SHIFT. PT RECEIVING ORAL ABX AND IV ROCEPHIN. PT TOLERATING MEDICATIONS WELL. PT AT BEDSIDE. PT ANXIOUS TO GO HOME. PT HAS IVS IN BOTH ARMS. BOTH FLUSHING WELL AND SALINE LOCKED. NO NEEDS AT THIS TIME. CALL LIGHT IN REACH. BED IN LOWEST POSITION. WILL CONTINUE TO MONITOR.
[2022-12-10 20:20] VITALS: BP 144/65
[2022-12-11 02:08] VITALS: BP 149/58
--- NOTE | 2022-12-11 02:33 | NUR ---
SHIFT SUMMARY NOC PT A/O X 4. PLEASANT AND COOPERATIVE WITH CARE. PT ON TELE RUNNING SINUS RHYTHM HR 80 BPM. PT LUNG SOUNDS HAVE EXPIRATORY WHEEZES T/O. NO ACUTE CHANGES TO REPORT. PT EXPECTED TO DISCHARGE HOME TODAY.PT HAS BILATERAL IV ACCESS IN BOTH AC'S THAT FLUSH EASILY, AND ARE SALINE LOCKED. PT IS CURRENTLY RESTING WITH BED IN LOWEST POSITION, AND CALL LIGHT WITHIN REACH.
[2022-12-11 04:58] LABS: BASOPHILS ABSOLUTE AUTO 0.02 K/mm3 (0.00-0.23); BASOPHILS PERCENT AUTO 0 % (0-2); EOSINOPHILS PERCENT AUTO 0 % (0-6); Hematocrit 29.8 % (33.0-51.0); Hemoglobin 9.7 g/dL (11.5-16.0); IMMATURE GRAN ABSOLUTE AUTO 0.07 K/mm3 (0.00-0.10); IMMATURE GRAN PERCENT AUTO 1 % (0-1); LYMPHOCYTES ABSOLUTE AUTO 1.47 K/mm3 (0.84-5.20); LYMPHOCYTES PERCENT AUTO 10 % (21-46); MONOCYTES ABSOLUTE AUTO 1.32 K/mm3 (0.16-1.47); MONOCYTES PERCENT AUTO 9 % (4-13); Mean Corpuscular HGB 29.8 pg (26.0-34.0); Mean Corpuscular HGB Conc 32.6 g/dL (31.5-36.5); Mean Corpuscular Volume 92 fL (80-100); Mean Platelet Volume 12.5 fL (9.1-12.4); NEUTROPHILS ABSOLUTE AUTO 11.67 K/mm3 (1.96-9.15); NEUTROPHILS PERCENT AUTO 80 % (41-73); Platelet Count 205 K/mm3 (150-400); RDW Coefficient Variation 12.7 % (11.7-14.2); RDW Standard Deviation 42.4 fL (35.1-46.3); Red Blood Cell Count 3.25 M/mm3 (3.80-5.20); White Blood Cell Count 14.55 K/mm3 (4.00-11.30)
[2022-12-11 05:17] LABS: Albumin, Blood 2.5 g/dL (3.4-5.0); Anion Gap 5 mmol/L (6-16); Blood Urea Nitrogen 32 mg/dL (8-24); Bun/Creatinine Ratio 33.9 (12.0-20.0); CO2, Blood 21 mmol/L (21-32); Chloride, Blood 109 mmol/L (98-108); Creatinine, Blood 0.94 mg/dL (0.40-1.00); Glomerular Filtration Rate 62 (60-); Glucose, Blood 116 mg/dL (70-99); Phosphorus, Blood 2.3 mg/dL (2.5-4.9); Potassium, Blood 3.7 mmol/L (3.5-5.5); Sodium, Blood 135 mmol/L (136-145)
--- NOTE | 2022-12-11 05:41 | NUR ---
NOTIFIED BY PCU DRIVERS' CASH CLERK PT HAS SOME ST ELEVATION IN LEADS 2, 3, AND aVF. PT ASYMPTOMATIC WELDER GUN MADE AWARE. WILL CONTINUE TO MONITOR PT FOR S/S OF DISTRESS.
--- NOTE | 2022-12-11 06:13 | NUR ---
NOTIFIED BY PCU ENDOSCOPIC TECHNICIAN THAT PT IS CONTINUING TO HAVE ST ELEVATION/DEPRESSION. PT STILL ASYMPTOMATIC. CHARGE NURSE AND HOSPITALIST NOTIFIED AND HOSPITALIST ORDERED EKG AND TO CONTINUE MONITORING FOR S/S OF DISTRESS.
[2022-12-11 07:36] VITALS: BP 162/66
--- NOTE | 2022-12-11 15:26 | NUR ---
SHIFT SUMMARY PT AWAKE DURING SHIFT REPORT THIS AM, RESTING QUIETLY WATCHING TV. PER REPORT, PT HAVING INCREASED ST ELEVATIONS, ON TELE. DR NOTIFIED WELL EKG'S DONE. BURDEN IN TO SEE PT AND UPDATED ON PT STATUS. NEW ORDERS GIVEN. NO CHANGES IN EKG'S FOR PAST COUPLE OF YEARS. PT DENIED ANY CP AND HAS REMAINED ASYMPTOMATIC. INDEPENDENT IN RM AND TO BTHRM. LUNGS T/O COARSE WITH SCATTERED UPPER WHEEZES. PT REMAINS ON RA WITH BIOX WNL'S; SEE CHART. POSSIBLE D/C TOMORROW. PT'S IN THIS AFTERNOON TO VISIT. NO C/O PAIN. ABLE TO MAKE NEEDS KNOWN. CALL LT IN REACH.
[2022-12-11 15:28] VITALS: BP 170/75
--- NOTE | 2022-12-11 17:54 | NUR ---
1730 LILIANA, IN TELEMETRY, CALLED TO REPORT NO FURTHER EPISODES OF ST ELEVATION ALARMS ON THE MONITOR SINCE 08:00 THIS AM.
[2022-12-11 19:34] VITALS: BP 172/78
--- NOTE | 2022-12-11 21:47 | NUR ---
TELE MONITOR REPORT PATIENT CONVERT TO AFIB 120-130'S AROUND 20:00. SCHEDULED PO LOPRESSOR 25 MG BID GIVEN. HOSPITALIST JC NGUYỄN ORDERED IV LOPRESSOR 5 MG Q2 PRN FOR HR >120. HR 135 AND IV LOPRESSOR 5 MG GIVEN WITH TELEMTRY MONITORING. WCTM.
--- NOTE | 2022-12-11 22:21 | NUR ---
TELEMETRY CONVERSION: PATIENT CONVERT BACK TO NSR @ 89 AFTER GIVING IV LOPRESSOR 5 MG @ 22:10. WCTM.
[2022-12-12 03:05] VITALS: BP 156/65
--- NOTE | 2022-12-12 03:29 | NUR ---
TELEMETRY EVENT: TECH REPORTS PATIENT BACK INTO AFIB 140. IV LOPRESSOR 5 MG GIVEN FOR HR >120 PER EMAR WITH TELE MONITORING. DIMITRIOS.
--- NOTE | 2022-12-12 03:48 | NUR ---
TELE MONITOR: HR NOW 94-98 DOWN FROM AFIB 140. WCTM
--- NOTE | 2022-12-12 04:28 | NUR ---
SHIFT SUMMARY PATIENT HAD MULTIPLE TELEMETRY EVENTS (SEE NOTES) CONVERTING FROM NSR TO AFIB AND BACK AFTER IV LOPRESSOR 5 MG GIVEN FOR HR >120. AXOX 3-4 WITH CONFUSION AT TIMES. INDEPENDENT IN ROOM. PIVS REMAIN INTACT. DENIES CHEST PAIN, SOB, AND N/V. AFEBRILE. PATIENT REPORTED COUGH AND TESSALON 200 MG GIVEN PER EMAR. RT IN FOR BREATHING TX. CALL LIGHT IN REACH. BED IN LOWEST POSITION. WILL CONTINUE TO MONITOR UNTIL DAY SHIFT NURSE ASSUMES CARE.
[2022-12-12 05:04] LABS: BASOPHILS ABSOLUTE AUTO 0.02 K/mm3 (0.00-0.23); BASOPHILS PERCENT AUTO 0 % (0-2); EOSINOPHILS PERCENT AUTO 0 % (0-6); Hematocrit 31.2 % (33.0-51.0); Hemoglobin 10.2 g/dL (11.5-16.0); IMMATURE GRAN ABSOLUTE AUTO 0.08 K/mm3 (0.00-0.10); IMMATURE GRAN PERCENT AUTO 1 % (0-1); LYMPHOCYTES ABSOLUTE AUTO 1.94 K/mm3 (0.84-5.20); LYMPHOCYTES PERCENT AUTO 12 % (21-46); MONOCYTES ABSOLUTE AUTO 1.43 K/mm3 (0.16-1.47); MONOCYTES PERCENT AUTO 9 % (4-13); Mean Corpuscular HGB 29.8 pg (26.0-34.0); Mean Corpuscular HGB Conc 32.7 g/dL (31.5-36.5); Mean Corpuscular Volume 91 fL (80-100); NEUTROPHILS ABSOLUTE AUTO 12.13 K/mm3 (1.96-9.15); NEUTROPHILS PERCENT AUTO 78 % (41-73); Platelet Count 225 K/mm3 (150-400); RDW Coefficient Variation 12.8 % (11.7-14.2); RDW Standard Deviation 42.9 fL (35.1-46.3); Red Blood Cell Count 3.42 M/mm3 (3.80-5.20)
[2022-12-12 05:38] LABS: Albumin, Blood 2.5 g/dL (3.4-5.0); Anion Gap 4 mmol/L (6-16); Blood Urea Nitrogen 30 mg/dL (8-24); Bun/Creatinine Ratio 31.5 (12.0-20.0); CO2, Blood 22 mmol/L (21-32); Calcium, Blood 9.2 mg/dL (8.5-10.1); Chloride, Blood 108 mmol/L (98-108); Creatinine, Blood 0.95 mg/dL (0.40-1.00); Glomerular Filtration Rate 61 (60-); Glucose, Blood 97 mg/dL (70-99); Phosphorus, Blood 3.6 mg/dL (2.5-4.9); Sodium, Blood 134 mmol/L (136-145)
[2022-12-12 07:20] VITALS: BP 148/75
[2022-12-12] MEDS ORDERED: VISBIOME 112.51 EACH PO (10:26)
[2022-12-12] MEDS ORDERED: DOXY100 PO (10:27)
[2022-12-12] MEDS ORDERED: METO50ER PO (10:27)
[2022-12-12] MEDS ORDERED: GUAI600T33 PO (10:27)
[2022-12-12] MEDS ORDERED: PRED20 PO (10:46)
[2022-12-12] MEDS ORDERED: AMOCLA875 PO (10:46)
[2022-12-12] MEDS ORDERED: ELIQUIS5 M2 PO (10:47)
--- NOTE | 2022-12-12 11:30 | NUR ---
DISCHARGE SUMMARY DISCHARGE, FOLLOWUP AND MEDICATION INSTRUCTIONS GIVEN TO PT. PT VOICED COMPLETE UNDERSTANDING AND HAS NO QUESTIONS AT THIS TIME. IVS REMOVED WITH CATHETER TIP INTACT.
== END 2022-12-12 11:29 | disposition home or self-care (01) | DRG 194 ==
LOC: ER 06:39 → MEDS 09:30 → ENPENDDIS 12-12 10:27 → MEDS 12-12 11:29
PROVIDERS: Student in an Organized Health Care Education/Training Program; ADMIT Family Medicine
DX: J18.9 Pneumonia, unspecified organism (principal); E87.1 Hypo-osmolality and hyponatremia; I13.0 Hypertensive heart and chronic kidney disease with heart failure and stage 1 through stage 4 chronic kidney disease, or unspecified chronic kidney disease; J44.0 Chronic obstructive pulmonary disease with (acute) lower respiratory infection; I50.30 Unspecified diastolic (congestive) heart failure; J44.1 Chronic obstructive pulmonary disease with (acute) exacerbation; I48.91 Unspecified atrial fibrillation; N18.9 Chronic kidney disease, unspecified; E83.42 Hypomagnesemia; E03.9 Hypothyroidism, unspecified; E78.5 Hyperlipidemia, unspecified; F41.9 Anxiety disorder, unspecified; F32.A Depression, unspecified; K21.9 Gastro-esophageal reflux disease without esophagitis; R94.31 Abnormal electrocardiogram [ECG] [EKG]; Z87.891 Personal history of nicotine dependence; Z90.710 Acquired absence of both cervix and uterus; Z90.49 Acquired absence of other specified parts of digestive tract; Z90.721 Acquired absence of ovaries, unilateral; Z85.41 Personal history of malignant neoplasm of cervix uteri; Z88.8 Allergy status to other drugs, medicaments and biological substances; Z79.51 Long term (current) use of inhaled steroids; Z79.52 Long term (current) use of systemic steroids; Z79.899 Other long term (current) drug therapy; Z79.890 Hormone replacement therapy; Z87.19 Personal history of other diseases of the digestive system; Z79.891 Long term (current) use of opiate analgesic
CPT/HCPCS: 36415; 71045; 71046; 80053; 80069; 83605; 83735; 83880; 84145; 84484; 85025; 87040; 93005; 93010; 94640; 94644; 94664; 94760; 96361; 96365; 96366; 96375; 99285-25; A9270; C8929; J0696; J1644; J2930; J3475; J7030; J7050; J7060; J7512; Q9957

== ENCOUNTER 2022-12-17 21:33 | Emergency (ER) | payer MEDICARE, OTHER ==
[~2022-12-17] VITALS: Ht 157.5 cm; Wt 65.8 kg
[~2022-12-17 21:33] MED LIST changes: +AMOCLA875 PO; +DOXY100 PO; +ELIQUIS5 M2 PO; +FOSAMAX70 MG PO; +GUAI600T33 PO; +VISBIOME 112.51 EACH PO; +ZOLOFT25 MG PO
[2022-12-17 21:58] LABS: BASOPHILS ABSOLUTE AUTO 0.03 K/mm3 (0.00-0.23); BASOPHILS PERCENT AUTO 0 % (0-2); EOSINOPHILS ABSOLUTE AUTO 0.01 K/mm3 (0.00-0.68); EOSINOPHILS PERCENT AUTO 0 % (0-6); Hematocrit 35.3 % (33.0-51.0); Hemoglobin 11.5 g/dL (11.5-16.0); IMMATURE GRAN ABSOLUTE AUTO 0.21 K/mm3 (0.00-0.10); IMMATURE GRAN PERCENT AUTO 1 % (0-1); LYMPHOCYTES ABSOLUTE AUTO 2.26 K/mm3 (0.84-5.20); LYMPHOCYTES PERCENT AUTO 16 % (21-46); MONOCYTES ABSOLUTE AUTO 0.99 K/mm3 (0.16-1.47); MONOCYTES PERCENT AUTO 7 % (4-13); Mean Corpuscular HGB 30.2 pg (26.0-34.0); Mean Corpuscular HGB Conc 32.6 g/dL (31.5-36.5); Mean Corpuscular Volume 93 fL (80-100); Mean Platelet Volume 11.2 fL (9.1-12.4); NEUTROPHILS ABSOLUTE AUTO 11.09 K/mm3 (1.96-9.15); NEUTROPHILS PERCENT AUTO 76 % (41-73); Platelet Count 283 K/mm3 (150-400); RDW Coefficient Variation 13.3 % (11.7-14.2); RDW Standard Deviation 45.3 fL (35.1-46.3); Red Blood Cell Count 3.81 M/mm3 (3.80-5.20); White Blood Cell Count 14.59 K/mm3 (4.00-11.30)
[2022-12-17 22:16] LABS: Albumin, Blood 2.4 g/dL (3.4-5.0); Albumin/Globulin Ratio 0.6 (0.8-1.8); Bilirubin, Total 0.3 mg/dL (0.1-1.0); Bun/Creatinine Ratio 34.1 (12.0-20.0); Calcium, Blood 8.6 mg/dL (8.5-10.1); Creatinine, Blood 0.97 mg/dL (0.40-1.00); Globulin, Blood 3.8 g/dL (2.2-4.0); Potassium, Blood 4.6 mmol/L (3.5-5.5); Total Protein, Blood 6.2 g/dL (6.4-8.2)
[2022-12-17] MEDS ORDERED: FURO20 PO (23:42)
[2022-12-17] MEDS ORDERED: POTA10T PO (23:42)
[2022-12-17 23:43] VITALS: BP 143/83
== END 2022-12-17 23:56 | disposition home or self-care (01) ==
LOC: ER 21:33
PROVIDERS: Emergency Medicine
DX: I13.0 Hypertensive heart and chronic kidney disease with heart failure and stage 1 through stage 4 chronic kidney disease, or unspecified chronic kidney disease (principal); I50.20 Unspecified systolic (congestive) heart failure; N18.9 Chronic kidney disease, unspecified; J44.9 Chronic obstructive pulmonary disease, unspecified; K21.9 Gastro-esophageal reflux disease without esophagitis; E78.5 Hyperlipidemia, unspecified; Z88.6 Allergy status to analgesic agent; Z88.8 Allergy status to other drugs, medicaments and biological substances; Z79.890 Hormone replacement therapy; Z79.899 Other long term (current) drug therapy; Z79.52 Long term (current) use of systemic steroids; Z87.891 Personal history of nicotine dependence
CPT/HCPCS: 71046; 80053; 83880; 85025; 93005; 93010; 96374; 99284-25; J1940

== ENCOUNTER 2023-02-11 09:12 | Emergency (ER) | payer MEDICARE ==
[~2023-02-11] VITALS: Ht 160 cm; Wt 63.5 kg
[~2023-02-11 09:12] MED LIST changes: +FURO20 PO; +POTA10T PO
[2023-02-11 09:26] VITALS: BP 158/77
[2023-02-11] MEDS ORDERED: MUPIROCIN1 GM TOP (09:59)
== END 2023-02-11 10:26 | disposition home or self-care (01) ==
LOC: ER 09:12
DX: R21 Rash and other nonspecific skin eruption (principal); I10 Essential (primary) hypertension; E03.9 Hypothyroidism, unspecified; E78.5 Hyperlipidemia, unspecified; I48.91 Unspecified atrial fibrillation; J44.9 Chronic obstructive pulmonary disease, unspecified; K21.9 Gastro-esophageal reflux disease without esophagitis; Z88.6 Allergy status to analgesic agent; Z88.8 Allergy status to other drugs, medicaments and biological substances; Z85.41 Personal history of malignant neoplasm of cervix uteri; Z79.01 Long term (current) use of anticoagulants; Z79.899 Other long term (current) drug therapy; Z87.891 Personal history of nicotine dependence
CPT/HCPCS: 99282

== ENCOUNTER 2023-03-16 16:41 | Emergency (ER) | payer MEDICARE, OTHER ==
[~2023-03-16] VITALS: Ht 157.5 cm; Wt 63.5 kg
[~2023-03-16 16:41] MED LIST changes: +MUPIROCIN1 GM TOP
[2023-03-16 19:03] VITALS: BP 134/84
== END 2023-03-16 19:00 | disposition home or self-care (01) ==
LOC: ER 16:41
DX: M71.21 Synovial cyst of popliteal space [Baker], right knee (principal); Z88.6 Allergy status to analgesic agent; Z88.8 Allergy status to other drugs, medicaments and biological substances; Z79.890 Hormone replacement therapy; Z79.51 Long term (current) use of inhaled steroids; Z79.899 Other long term (current) drug therapy; Z79.01 Long term (current) use of anticoagulants; J44.9 Chronic obstructive pulmonary disease, unspecified; I10 Essential (primary) hypertension; I48.91 Unspecified atrial fibrillation; E78.5 Hyperlipidemia, unspecified; K21.9 Gastro-esophageal reflux disease without esophagitis; E03.9 Hypothyroidism, unspecified; Z87.891 Personal history of nicotine dependence
CPT/HCPCS: 73562-RT; 93971; 99284-25

== ENCOUNTER 2024-04-01 21:25 | Emergency (ER) | payer OTHER ==
[~2024-04-01] VITALS: Ht 160 cm; Wt 62.1 kg
[~2024-04-01 21:25] MED LIST changes: +ATOR40TA PO; +JARDIANCE10 MG PO; +SPIR25 PO; +TOPROL XL25 MG PO
[2024-04-01 22:07] LABS: BASOPHILS ABSOLUTE AUTO 0.11 K/mm3 (0.00-0.23); BASOPHILS PERCENT AUTO 1 % (0-2); EOSINOPHILS ABSOLUTE AUTO 0.62 K/mm3 (0.00-0.68); EOSINOPHILS PERCENT AUTO 5 % (0-6); Hematocrit 35.2 % (33.0-51.0); Hemoglobin 11.2 g/dL (11.5-16.0); IMMATURE GRAN ABSOLUTE AUTO 0.03 K/mm3 (0.00-0.10); IMMATURE GRAN PERCENT AUTO 0 % (0-1); LYMPHOCYTES ABSOLUTE AUTO 4.38 K/mm3 (0.84-5.20); LYMPHOCYTES PERCENT AUTO 38 % (21-46); MONOCYTES ABSOLUTE AUTO 1.24 K/mm3 (0.16-1.47); MONOCYTES PERCENT AUTO 11 % (4-13); Mean Corpuscular HGB 31.1 pg (26.0-34.0); Mean Corpuscular HGB Conc 31.8 g/dL (31.5-36.5); Mean Corpuscular Volume 98 fL (80-100); Mean Platelet Volume 10.7 fL (9.1-12.4); NEUTROPHILS ABSOLUTE AUTO 5.04 K/mm3 (1.96-9.15); NEUTROPHILS PERCENT AUTO 44 % (41-73); Platelet Count 207 K/mm3 (150-400); RDW Coefficient Variation 12.9 % (11.7-14.2); RDW Standard Deviation 46.2 fL (35.1-46.3); White Blood Cell Count 11.42 K/mm3 (4.00-11.30)
[2024-04-01] MEDS ORDERED: Aspirin 325 MG Tab PO ONE (22:35)
[2024-04-01 22:53] LABS: Albumin, Blood 3.1 g/dL (3.4-5.0); Albumin/Globulin Ratio 0.8 (0.8-1.8); Bilirubin, Total 0.2 mg/dL (0.1-1.0); Bun/Creatinine Ratio 27.3 (12.0-20.0); Calcium, Blood 8.5 mg/dL (8.5-10.1); Creatinine, Blood 2.31 mg/dL (0.40-1.00); Globulin, Blood 3.9 g/dL (2.2-4.0); Potassium, Blood 4.5 mmol/L (3.5-5.5)
[2024-04-02 00:45] VITALS: BP 138/50
== END 2024-04-02 00:57 | disposition home or self-care (01) ==
LOC: ER 21:25
PROVIDERS: Student in an Organized Health Care Education/Training Program
DX: R00.1 Bradycardia, unspecified (principal); R07.89 Other chest pain; R74.8 Abnormal levels of other serum enzymes; I48.91 Unspecified atrial fibrillation; J44.9 Chronic obstructive pulmonary disease, unspecified; I13.0 Hypertensive heart and chronic kidney disease with heart failure and stage 1 through stage 4 chronic kidney disease, or unspecified chronic kidney disease; N18.9 Chronic kidney disease, unspecified; I50.20 Unspecified systolic (congestive) heart failure; E78.5 Hyperlipidemia, unspecified; K21.9 Gastro-esophageal reflux disease without esophagitis; Z87.891 Personal history of nicotine dependence; Z79.51 Long term (current) use of inhaled steroids; Z79.899 Other long term (current) drug therapy
CPT/HCPCS: 71046; 80053; 83690; 83880; 84484; 85025; 93005; 93010; 99285-25; A9270

== ENCOUNTER 2024-05-22 18:05 | Emergency (ER) | payer OTHER ==
[~2024-05-22] VITALS: Ht 162.6 cm; Wt 72.6 kg
[2024-05-22] MEDS ORDERED: Ondansetron HCl 2 MG / ML 2ML Vial IV ONE (18:45)
[2024-05-22 18:56] LABS: Source, Urine Clean Catch
[2024-05-22 18:59] LABS: Bilirubin, Urine Neg (Neg); Blood, Urine 1+ (Neg); Glucose Qualitative, Urine 2+ (Neg); Ketones, Urine Neg (Neg); Leukocyte Esterase, Urine 2+ (Neg); Nitrite, Urine Neg (Neg); Protein, Urine 1+ (Neg); Urobilinogen, Urine NORM (Normal)
[2024-05-22 19:07] LABS: Color, Urine Pale Yellow (P-Yellow)
[2024-05-22 19:08] LABS: Appearance, Urine Hazy (Clear); Bacteria Mod /hpf; Red Blood Cells, Urine 0-2 /hpf (0-2); Squamous Epithelial Cells Rare /hpf (Few); White Blood Cells, Urine 25-50 /hpf (0-5)
[2024-05-22 19:35] LABS: Albumin, Blood 3.7 g/dL (3.4-5.0); Albumin/Globulin Ratio 0.9 (0.8-1.8); Bilirubin, Total 0.4 mg/dL (0.1-1.0); Bun/Creatinine Ratio 17.6 (12.0-20.0); Calcium, Blood 9.2 mg/dL (8.5-10.1); Creatinine, Blood 1.88 mg/dL (0.40-1.00); Globulin, Blood 3.9 g/dL (2.2-4.0); Total Protein, Blood 7.6 g/dL (6.4-8.2)
[2024-05-22 21:13] LABS: BASOPHILS ABSOLUTE AUTO 0.08 K/mm3 (0.00-0.23); BASOPHILS PERCENT AUTO 1 % (0-2); EOSINOPHILS ABSOLUTE AUTO 0.15 K/mm3 (0.00-0.68); EOSINOPHILS PERCENT AUTO 1 % (0-6); Hematocrit 36.8 % (33.0-51.0); Hemoglobin 12.2 g/dL (11.5-16.0); IMMATURE GRAN ABSOLUTE AUTO 0.03 K/mm3 (0.00-0.10); IMMATURE GRAN PERCENT AUTO 0 % (0-1); LYMPHOCYTES ABSOLUTE AUTO 2.03 K/mm3 (0.84-5.20); LYMPHOCYTES PERCENT AUTO 19 % (21-46); MONOCYTES ABSOLUTE AUTO 0.64 K/mm3 (0.16-1.47); MONOCYTES PERCENT AUTO 6 % (4-13); Mean Corpuscular HGB 30.7 pg (26.0-34.0); Mean Corpuscular HGB Conc 33.2 g/dL (31.5-36.5); Mean Corpuscular Volume 93 fL (80-100); NEUTROPHILS ABSOLUTE AUTO 8.02 K/mm3 (1.96-9.15); NEUTROPHILS PERCENT AUTO 73 % (41-73); Platelet Count 218 K/mm3 (150-400); RDW Standard Deviation 44.2 fL (35.1-46.3); Red Blood Cell Count 3.98 M/mm3 (3.80-5.20); White Blood Cell Count 10.95 K/mm3 (4.00-11.30)
[2024-05-22 22:00] VITALS: BP 180/52
[2024-05-22] MEDS ORDERED: RX Prepack 2 Tabs Ondansetron ODT 4MG UD ONE (22:50)
[2024-05-22] MEDS ORDERED: CEPH500 PO (22:51)
== END 2024-05-22 23:03 ==
LOC: ER 18:05
PROVIDERS: Physician Assistant
DX: R11.2 Nausea with vomiting, unspecified (principal); N30.00 Acute cystitis without hematuria; Z79.899 Other long term (current) drug therapy; I48.91 Unspecified atrial fibrillation; J44.9 Chronic obstructive pulmonary disease, unspecified; I13.0 Hypertensive heart and chronic kidney disease with heart failure and stage 1 through stage 4 chronic kidney disease, or unspecified chronic kidney disease; I50.20 Unspecified systolic (congestive) heart failure; N18.9 Chronic kidney disease, unspecified; E03.9 Hypothyroidism, unspecified; E78.5 Hyperlipidemia, unspecified; Z87.891 Personal history of nicotine dependence
CPT/HCPCS: 36415; 80053; 81001; 85025; 87077; 87086; 87186; 99284; A9270

== ENCOUNTER 2024-07-05 15:32 | Emergency (ER) | payer OTHER ==
[~2024-07-05] VITALS: Ht 160 cm; Wt 59.0 kg
[2024-07-05 16:55] LABS: BASOPHILS ABSOLUTE AUTO 0.04 K/mm3 (0.00-0.23); BASOPHILS PERCENT AUTO 0 % (0-2); EOSINOPHILS ABSOLUTE AUTO 0.13 K/mm3 (0.00-0.68); EOSINOPHILS PERCENT AUTO 1 % (0-6); Hematocrit 34.7 % (33.0-51.0); Hemoglobin 11.3 g/dL (11.5-16.0); IMMATURE GRAN ABSOLUTE AUTO 0.07 K/mm3 (0.00-0.10); IMMATURE GRAN PERCENT AUTO 1 % (0-1); LYMPHOCYTES ABSOLUTE AUTO 2.58 K/mm3 (0.84-5.20); LYMPHOCYTES PERCENT AUTO 23 % (21-46); MONOCYTES ABSOLUTE AUTO 1.05 K/mm3 (0.16-1.47); MONOCYTES PERCENT AUTO 10 % (4-13); Mean Corpuscular HGB 30.5 pg (26.0-34.0); Mean Corpuscular HGB Conc 32.6 g/dL (31.5-36.5); Mean Corpuscular Volume 94 fL (80-100); Mean Platelet Volume 11.4 fL (9.1-12.4); NEUTROPHILS ABSOLUTE AUTO 7.21 K/mm3 (1.96-9.15); NEUTROPHILS PERCENT AUTO 65 % (41-73); Platelet Count 255 K/mm3 (150-400); RDW Coefficient Variation 12.8 % (11.7-14.2); RDW Standard Deviation 43.9 fL (35.1-46.3); White Blood Cell Count 11.08 K/mm3 (4.00-11.30)
[2024-07-05 17:15] LABS: Albumin, Blood 2.9 g/dL (3.4-5.0); Albumin/Globulin Ratio 0.7 (0.8-1.8); Bilirubin, Total 0.3 mg/dL (0.1-1.0); Bun/Creatinine Ratio 17.9 (12.0-20.0); Calcium, Blood 9.6 mg/dL (8.5-10.1); Creatinine, Blood 2.35 mg/dL (0.40-1.00); Globulin, Blood 4.3 g/dL (2.2-4.0); Potassium, Blood 4.5 mmol/L (3.5-5.5); Total Protein, Blood 7.2 g/dL (6.4-8.2)
[2024-07-05 17:32] LABS: Influenza A, PCR NEGATIVE (NEGATIVE); Influenza B, PCR NEGATIVE (NEGATIVE); Resp Syncytial Virus, PCR NEGATIVE (NEGATIVE); SARS-Cov-2 (COVID-19) PCR, MMC NEGATIVE (NEGATIVE)
[2024-07-05] MEDS ORDERED: Ipratropium/Albuterol SulF 2.5-0.5MG/3 ML Amp INH ONE (20:00)
[2024-07-05] MEDS ORDERED: PredniSONE 20 MG Tab PO ONE (20:00)
[2024-07-05] MEDS ORDERED: Zithromax250 MG PO (20:59)
[2024-07-05] MEDS ORDERED: Prednisone20 MG PO (20:59)
[2024-07-05] MEDS ORDERED: Azithromycin 250 MG Tab PO ONE (21:00)
[2024-07-05 21:01] VITALS: BP 145/87
== END 2024-07-05 21:05 | disposition home or self-care (01) ==
LOC: ER 15:32
PROVIDERS: Physician Assistant
DX: J44.1 Chronic obstructive pulmonary disease with (acute) exacerbation (principal); I13.0 Hypertensive heart and chronic kidney disease with heart failure and stage 1 through stage 4 chronic kidney disease, or unspecified chronic kidney disease; N18.9 Chronic kidney disease, unspecified; I50.9 Heart failure, unspecified; F03.90 Unspecified dementia, unspecified severity, without behavioral disturbance, psychotic disturbance, mood disturbance, and anxiety; Z79.890 Hormone replacement therapy; Z79.899 Other long term (current) drug therapy; Z11.52 Encounter for screening for COVID-19; Z87.891 Personal history of nicotine dependence
CPT/HCPCS: 0241U; 71046; 80053; 85025; 93005; 93010; 94640; 94664; 99284-25; A9270; J7512

== ENCOUNTER 2024-07-09 22:29 | Emergency (ER) | payer OTHER ==
[~2024-07-09] VITALS: Ht 157.5 cm; Wt 59.0 kg
[~2024-07-09 22:29] MED LIST changes: +Prednisone20 MG PO; +Zithromax250 MG PO
[2024-07-09 23:01] LABS: BASOPHILS ABSOLUTE AUTO 0.01 K/mm3 (0.00-0.23); BASOPHILS PERCENT AUTO 0 % (0-2); EOSINOPHILS PERCENT AUTO 0 % (0-6); Hematocrit 32.6 % (33.0-51.0); Hemoglobin 10.7 g/dL (11.5-16.0); IMMATURE GRAN ABSOLUTE AUTO 0.18 K/mm3 (0.00-0.10); IMMATURE GRAN PERCENT AUTO 1 % (0-1); LYMPHOCYTES ABSOLUTE AUTO 2.04 K/mm3 (0.84-5.20); LYMPHOCYTES PERCENT AUTO 14 % (21-46); MONOCYTES ABSOLUTE AUTO 0.66 K/mm3 (0.16-1.47); MONOCYTES PERCENT AUTO 4 % (4-13); Mean Corpuscular HGB 30.7 pg (26.0-34.0); Mean Corpuscular HGB Conc 32.8 g/dL (31.5-36.5); Mean Corpuscular Volume 93 fL (80-100); Mean Platelet Volume 10.8 fL (9.1-12.4); NEUTROPHILS ABSOLUTE AUTO 12.04 K/mm3 (1.96-9.15); NEUTROPHILS PERCENT AUTO 81 % (41-73); Platelet Count 269 K/mm3 (150-400); RDW Standard Deviation 44.1 fL (35.1-46.3); Red Blood Cell Count 3.49 M/mm3 (3.80-5.20); White Blood Cell Count 14.93 K/mm3 (4.00-11.30)
[2024-07-09 23:21] LABS: Albumin/Globulin Ratio 0.8 (0.8-1.8); Bilirubin, Total 0.3 mg/dL (0.1-1.0); Bun/Creatinine Ratio 25.6 (12.0-20.0); Calcium, Blood 9.2 mg/dL (8.5-10.1); Creatinine, Blood 2.15 mg/dL (0.40-1.00); Globulin, Blood 3.8 g/dL (2.2-4.0); Potassium, Blood 4.3 mmol/L (3.5-5.5); Total Protein, Blood 6.8 g/dL (6.4-8.2)
[2024-07-10] MEDS ORDERED: AMOCLA875 PO (00:42)
[2024-07-10] MEDS ORDERED: Amoxicillin/Clavulanate K 875 MG Tab PO ONE (00:45)
[2024-07-10 01:15] VITALS: BP 121/59
== END 2024-07-10 01:17 | disposition home or self-care (01) ==
LOC: ER 22:29
PROVIDERS: Emergency Medicine
DX: S02.2XXA Fracture of nasal bones, initial encounter for closed fracture (principal); F10.90 Alcohol use, unspecified, uncomplicated; Z79.899 Other long term (current) drug therapy; Z87.891 Personal history of nicotine dependence; I48.91 Unspecified atrial fibrillation; I13.0 Hypertensive heart and chronic kidney disease with heart failure and stage 1 through stage 4 chronic kidney disease, or unspecified chronic kidney disease; N18.9 Chronic kidney disease, unspecified; E03.9 Hypothyroidism, unspecified; I50.9 Heart failure, unspecified; E78.5 Hyperlipidemia, unspecified; K21.9 Gastro-esophageal reflux disease without esophagitis
CPT/HCPCS: 70450; 70486; 80053; 80320; 85025; 99284-25; A9270

== ENCOUNTER 2025-03-12 10:25 | Emergency (ER) | payer OTHER ==
[~2025-03-12] VITALS: Ht 160 cm; Wt 61.2 kg
[2025-03-12 10:34] VITALS: BP 156/53
[2025-03-12 11:45] LABS: BASOPHILS ABSOLUTE AUTO 0.07 K/mm3 (0.00-0.23); BASOPHILS PERCENT AUTO 1 % (0-2); EOSINOPHILS ABSOLUTE AUTO 0.42 K/mm3 (0.00-0.68); EOSINOPHILS PERCENT AUTO 5 % (0-6); Hematocrit 34.9 % (33.0-51.0); Hemoglobin 11.2 g/dL (11.5-16.0); IMMATURE GRAN ABSOLUTE AUTO 0.02 K/mm3 (0.00-0.10); IMMATURE GRAN PERCENT AUTO 0 % (0-1); LYMPHOCYTES ABSOLUTE AUTO 1.96 K/mm3 (0.84-5.20); LYMPHOCYTES PERCENT AUTO 24 % (21-46); MONOCYTES ABSOLUTE AUTO 0.74 K/mm3 (0.16-1.47); MONOCYTES PERCENT AUTO 9 % (4-13); Mean Corpuscular HGB Conc 32.1 g/dL (31.5-36.5); Mean Corpuscular Volume 95 fL (80-100); NEUTROPHILS ABSOLUTE AUTO 5.04 K/mm3 (1.96-9.15); NEUTROPHILS PERCENT AUTO 61 % (41-73); NRBC ABSOLUTE 0.00 K/mm3 (0.00-0.02); NRBC Auto 0.0 /100 WBC (0.0-0.2); Platelet Count 204 K/mm3 (150-400); RDW Coefficient Variation 13.7 % (11.7-14.2); RDW Standard Deviation 47.1 fL (35.1-46.3)
[2025-03-12 11:59] LABS: Alanine Aminotransfer (ALT/SGP 23.0 U/L (12-78); Albumin, Blood 3.0 g/dL (3.4-5.0); Albumin/Globulin Ratio 0.7 (0.8-1.8); Anion Gap 10.0 mmol/L (3-11); Aspartate Aminotrans (AST/SGOT 26.0 U/L (12-37); Bilirubin, Total 0.3 mg/dL (0.1-1.0); Blood Urea Nitrogen 44.0 mg/dL (8-24); CO2, Blood 24.0 mmol/L (21-32); Calcium, Blood 8.6 mg/dL (8.5-10.1); Chloride, Blood 102.0 mmol/L (98-108); Creatinine, Blood 1.99 mg/dL (0.40-1.00); Globulin, Blood 4.3 g/dL (2.2-4.0); Glucose, Blood 87.0 mg/dL (70-99); Potassium, Blood 4.3 mmol/L (3.5-5.5); Sodium, Blood 132.0 mmol/L (136-145); Total Protein, Blood 7.3 g/dL (6.4-8.2)
== END 2025-03-12 13:03 | disposition home or self-care (01) ==
LOC: ER 10:25
PROVIDERS: Physician Assistant
DX: R60.0 Localized edema (principal); I48.91 Unspecified atrial fibrillation; J44.9 Chronic obstructive pulmonary disease, unspecified; K21.9 Gastro-esophageal reflux disease without esophagitis; E78.5 Hyperlipidemia, unspecified; I13.0 Hypertensive heart and chronic kidney disease with heart failure and stage 1 through stage 4 chronic kidney disease, or unspecified chronic kidney disease; I50.20 Unspecified systolic (congestive) heart failure; N18.9 Chronic kidney disease, unspecified; E03.9 Hypothyroidism, unspecified; Z87.891 Personal history of nicotine dependence; Z79.52 Long term (current) use of systemic steroids; Z79.899 Other long term (current) drug therapy
CPT/HCPCS: 80053; 83880; 85025; 93005; 93010; 99284-25